=== PATIENT | female | born 1990 | race Caucasian/White ===

== ENCOUNTER 2017-02-28 21:10 | Emergency (ER) | payer MEDICAID ==
[~2017-02-28] VITALS: Ht 162.6 cm; Wt 69.3 kg
[~2017-02-28 21:10] MED LIST: CALC-649 PO; FERR27TA PO; PREN1TAB49 PO
[2017-02-28 21:13] VITALS: Ht 162.6 cm; Wt 69.3 kg
--- NOTE | 2017-02-28 22:39 | ERD ---
ER Documentation Chief Complaint Chief Complaint neck pain w/ lump on right side of neck HPI The patient is a 26-year-old female, presenting with right-sided lump for approximately 2 week, associated with intermittent cough for the last week. She denies fever, chills, sore throat, neck pain, chest pain, dyspnea, dysuria, diarrhea. She does not smoke nor drink Past medical history: Hypothyroidism Surgical history: Appendectomy ROS All systems reviewed and are negative except as per history of present illness. Medications Home Meds Active Scripts Ibuprofen* (Motrin*) 600 Mg Tab, 600 MG PO Q6, #30 TAB Prov:FREDA RUANO MD 02/28/17 Cephalexin* (Keflex*) 500 Mg Capsule, 500 MG PO Q6, #40 CAP Prov:FREDA RUANO MD 02/28/17 Reported Medications Levothyroxine Sodium* (Levothyroxine Sodium*) 112 Mcg Tablet, 112 MCG PO BEFORE BREAKFAST, #30 TAB 02/28/17 Vits W-Ca,Fe,Fa(<1MG) () 1 Tab Tablet, 1 TAB PO DAILY 10/14/11 Discontinued Reported Medications Calcium Carbonate (Calcium) 1 Tab Tablet, 1 TAB PO DAILY 10/14/11 Ferrous Sulfate (Iron) 1 Tab Tablet, 1 TAB PO DAILY 10/14/11 Allergies Allergies: Coded Allergies: No Known Drug Allergy (Verified Allergy, Mild, 02/28/17) Physical Exam Vitals Vital Signs Date Time Temp Pulse Resp B/P Pulse Ox O2 Delivery O2 Flow Rate FiO2 02/28/17 21:13 98.3 87 20 126/71 98 Physical Exam Const: No acute distress. Head: Atraumatic. Eyes: Normal Conjunctiva. ENT: Normal External Ears, Nose and Mouth. Neck: Full range of motion. No meningismus. Right-sided cervical lymphadenopathy. Bilateral tympanic membrane and oropharynx are within normal limit Resp: Clear to auscultation bilaterally. Cardio: Regular rate and rhythm. Abd: Soft, non distended, normal bowel sounds, non tender. Skin: No petechiae or rashes. Back: No midline or flank tenderness. Ext: No cyanosis, or edema. Neur: Awake and alert. No focal deficit Psych: Normal Mood and Affect. Procedures/MDM MEDICAL MAKING DECISION: The patient is a 36-year-old female, presenting with right cervical adenitis. She is stable for outpatient follow-up. The differential diagnoses considered include but are not limited to tonsillitis , peritonsillar abscess, lymphoma, dental infection Departure Diagnosis: Primary Impression: Cervical adenitis Condition: Good Comments She was discharged with Keflex and Motrin I discussed the findings with the patient. I advised the patient to follow-up with the primary physician in about 1-2 days, sooner if needed and return if any concern. Disclaimer: Inadvertent spelling and grammatical errors are likely due to EHR/ dictation software use and do not reflect on the overall quality of patient care. Also, please note that the electronic time recorded on this note does not necessarily reflect the actual time of the patient encounter. FREDA RUANO MD Feb 28, 2017 22:39
[2017-02-28] MEDS ORDERED: CEPH-443 PO (23:13)
[2017-02-28] MEDS ORDERED: IBUP-1542 PO (23:13)
[2017-02-28] MEDS ORDERED: LEVO112T57 PO (23:20)
== END 2017-02-28 23:25 | disposition home or self-care (01) ==
LOC: E/R 21:10
DX: L04.0 Acute lymphadenitis of face, head and neck (principal); E03.9 Hypothyroidism, unspecified
CPT/HCPCS: 99283